=== PATIENT | female | born 1955 | race Caucasian/White ===

== ENCOUNTER → 2016-12-26 | Outpatient (CLI) | payer BC ==
--- NOTE | 2016-12-26 14:39 | RADIOLOGY REPORT PS360 ---
FOOT-RT-3 VIEWS HISTORY: RT FOOT PAIN ORDERING PHYSICIAN: Norman Wong MD PATIENT AGE: 61 years COMPARISON: None FINDINGS: No fracture or dislocation. No lytic or blastic change. There is normal mineralization.. The joint spaces are well-preserved. No significant degenerative/arthritic changes. No erosive changes evident. IMPRESSION: Negative right foot, no acute finding
== END ==
LOC: RAD 10:47
DX: M79.671 Pain in right foot (principal)